=== PATIENT | male | born 1950 | race Caucasian/White ===

== ENCOUNTER 2022-05-26 12:15 | Outpatient (CLI) | payer MEDICARE, BC, SELFPAY | END 2022-05-26 12:16 | disposition home or self-care (01) | LOC: FBOREF 05-27 09:57 | PROVIDERS: PCP Family Medicine; Visit Provider Family Medicine | DX: R39.9 Unspecified symptoms and signs involving the genitourinary system (principal); N39.0 Urinary tract infection, site not specified | CPT/HCPCS: 87086 ==

== ENCOUNTER 2022-06-30 10:43 | Day surgery (SDC) | payer MEDICARE, BC, SELFPAY ==
[2022-06-30] VITALS (12 sets, daily range): BP systolic 138–145; BP diastolic 71–84; PULSE 53–67; RESP 14–20; TEMP 36.4–36.8; O2SAT 94–97
[2022-06-30] MEDS: BUPIVACAINE 0.5% 30 ML INJECTION (11:47)
[2022-06-30] MEDS: lidocaine HCL 2 % MULTIDOSE 20 ML VIAL INJECTION (11:47)
--- NOTE | 2022-06-30 12:38 | P.ORPRC_ITS ---
Procedure Note Date of procedure: 06/30/22 Procedure: Preop diagnosis: Left upper extremity carpal tunnel syndrome Postop diagnosis: Left upper extremity carpal tunnel syndrome Procedure: Left upper extremity carpal tunnel release Anesthesia: Local Surgeon: Camron Gates MD pest controller assistant: MONAE Villagran EBL: 5 mL Complications: None Specimens: Sent for gross and microscopic pathology, labeled carpal tunnel tenosynovium, ? gout Drains: None Indications: The patient has a history of left upper extremity carpal tunnel syndrome symptoms. Despite appropriate nonoperative management consisting of nighttime bracing and occupational therapy they continue to have symptoms. Operative intervention was recommended. The risks, benefits alternatives and expected outcomes were discussed in detail. These included but were not limited to: Infection, bleeding, injury to blood vessel or nerve, venous thromboembolism. All questions were answered to their satisfaction. The patient was placed supine on the operating room table. Local anesthesia was established with 0.5% Marcaine without epinephrine and 2% lidocaine without epinephrine. The hand was prepped and draped in usual sterile fashion. The limb was elevated the forearm pneumatic tourniquet was inflated to 250 mm of mercury. A longitudinal incision was made centered over the radial border of the ring finger at the base of the palm. Subcutaneous dissection was sharply taken through the palmar fascia and the palmaris brevis to the transverse carpal ligament. The ligament was divided in line with the incision. Proximal and distal dissection was carried with tenotomy and Metzenbaum scissors for a wide decompression of the carpal tunnel. There was white, tophaceous material within the carpal tunnel, adherent to tenosynovium. This was debrided with tenotomy scissors and sent for gross and microscopic pathology. The tourniquet was released, bleeding was controlled with direct pressure. The wound was closed with a 3-0 nylon. A bulky dry dressing was applied, sponge and needle counts were correct x 2. The patient tolerated the procedure well, there were no apparent complications. They were sent to same day surgery in satisfactory condition. Plan: Use of the hand as tolerates. Discontinue the intraoperative dressing on postoperative day 3 and may get the wound wet as tolerates. Follow up in the office in 2 weeks for a wound check and suture removal.
== END 2022-06-30 13:05 | disposition home or self-care (01) ==
LOC: OR 10:44
PROVIDERS: PCP Family Medicine; Visit Provider Orthopaedic Surgery
PROC: (CPT 64721; principal; 2022-06-30 11:45)
DX: G56.02 Carpal tunnel syndrome, left upper limb (principal)
CPT/HCPCS: 64721; 88305; J3490

== ENCOUNTER 2022-08-13 05:59 | Day surgery (SDC) | payer MEDICARE, BC, SELFPAY ==
[2022-08-13] VITALS (9 sets, daily range): BP systolic 107–150; BP diastolic 65–77; PULSE 51–64; RESP 15–20; TEMP 36.3–36.4; O2SAT 92–96; BMI 42.0
[2022-08-13] MEDS: CEFAZOLIN 2 GM in 0.9 % SODIUM CHLORIDE Mini-bag 100 ML IVPB (06:28)
[2022-08-13] MEDS: BUPIVACAINE 0.5% 30 ML INJECTION (07:31)
[2022-08-13] MEDS: lidocaine HCL 2 % MULTIDOSE 20 ML VIAL INJECTION (07:31)
--- NOTE | 2022-08-13 07:54 | P.ORPRC_ITS ---
Procedure Note Date of procedure: 08/13/22 Procedure: Preop diagnosis: Right upper extremity carpal tunnel syndrome Postop diagnosis: Right upper extremity carpal tunnel syndrome Procedure: Right upper extremity carpal tunnel release Anesthesia: Local Surgeon: Camron Gates MD customer relations assistant: MONAE Villagran EBL: 5 mL Complications: None Specimens: None Drains: None Preop antibiotics: Ancef 2 g Indications: The patient has a history of right upper extremity carpal tunnel syndrome symptoms. Despite appropriate nonoperative management consisting of nighttime bracing and occupational therapy they continue to have symptoms. Operative intervention was recommended. The risks, benefits alternatives and expected outcomes were discussed in detail. These included but were not limited to: Infection, bleeding, injury to blood vessel or nerve, venous thromboembolism. All questions were answered to their satisfaction. The patient was placed supine on the operating room table. Local anesthesia was established with 0.5% Marcaine without epinephrine and 2% lidocaine without epinephrine. The hand was prepped and draped in usual sterile fashion. The limb was elevated the forearm pneumatic tourniquet was inflated to 250 mm of mercury. A longitudinal incision was made centered over the radial border of the ring finger at the base of the palm. Subcutaneous dissection was sharply taken through the palmar fascia and the palmaris brevis to the transverse carpal ligament. The ligament was divided in line with the incision. Proximal and distal dissection was carried with tenotomy and Metzenbaum scissors for a wide decompression of the carpal tunnel. There was some evidence for gouty material just deep to the proximal aspect of the transverse carpal ligament. However, it was not as extensive as his left upper extremity. Therefore, we did not proceed with tenosynovectomy or neurolysis. The tourniquet was released , bleeding was controlled with direct pressure. The wound was closed with a 3-0 nylon. A bulky dry dressing was applied, sponge and needle counts were correct x 2. The patient tolerated the procedure well, there were no apparent complications. They were sent to same day surgery in satisfactory condition. Plan: Use of the hand as tolerates. Discontinue the intraoperative dressing on postoperative day 3 and may get the wound wet as tolerates. Follow up in the office in 2 weeks for a wound check and suture removal.
== END 2022-08-13 08:20 | disposition home or self-care (01) ==
PROVIDERS: PCP Family Medicine; Visit Provider Orthopaedic Surgery
PROC: (CPT 64721; principal; 2022-08-13 07:15)
DX: G56.01 Carpal tunnel syndrome, right upper limb (principal)
CPT/HCPCS: 64721; J0690; J3490

== ENCOUNTER 2023-08-10 10:14 | Outpatient (CLI) | payer MEDICARE, BC, SELFPAY | END 2023-08-10 10:15 | disposition home or self-care (01) | LOC: INJ CL 10:15 | PROVIDERS: PCP Family Medicine; Visit Provider Family Medicine | DX: M51.36 Other intervertebral disc degeneration, lumbar region (principal); M54.16 Radiculopathy, lumbar region | CPT/HCPCS: 62323; J0702; Q9966 ==